=== PATIENT | male | born 1950 | race Caucasian/White ===

== ENCOUNTER 2018-06-19 11:08 | Day surgery (SDC) | payer MEDICARE ==
[2018-06-19 12:11] VITALS: BMI 31.4
[2018-06-19] MEDS ORDERED: Lidocaine 2% MPF (5 ml) Inj ONE (12:18)
[2018-06-19] MEDS ORDERED: Midazolam 2 MG/2 ML VIAL ONE (12:27)
[2018-06-19] MEDS ORDERED: Propofol 10 mg/ml Inj (20 ML) ONE (12:28)
[2018-06-19] MEDS ORDERED: Phenylephrine 10 mg/ml Inj ONE (12:31)
[2018-06-19] MEDS ORDERED: ePHEDrine 50 mg/ml Inj ONE (12:31)
[2018-06-19] MEDS ORDERED: ceFAZolin 1 gm FROZEN Premix 1 GM/50 ML ML IVPB ONE (12:40)
[2018-06-19] MEDS ORDERED: Iohexol 350mg/ml 100 ML ONE (13:22)
--- NOTE | 2018-06-19 13:51 | PCM.SURG1 ---
Surgeon's Initial Post Op Note - Surgeon's Notes Surgeon: Dr. Williamson Studio Potter: Dr. Aguila Type of Anesthesia: IV Sedation Pre-Operative Diagnosis: Aortobi-iliac stenosis Operative Findings: See operative dictation Post-Operative Diagnosis: Same Operation Performed: Peripheral aortofemoral angiogram, Balloon dilitation and stenting with [id number] dilated to 8mm Specimen/Specimens Removed: None Estimated Blood Loss: EBL {In ML}: 20 Blood Products Given: N/A Drains Used: No Drains Post-Op Condition: Good Date of Surgery/Procedure: 06/19/18 Time of Surgery/Procedure: 13:51
--- NOTE | 2018-06-20 00:45 | VAS ---
DATE: 06/19/2018 PREOPERATIVE DIAGNOSES: Claudication in both legs, aortoiliac occlusive disease, bilateral common iliac artery stenosis. PROCEDURES CARRIED OUT: Aortofemoral angiogram with bilateral femoral artery puncture, deployment of bilateral common iliac artery stent. SURGEON: Sreekanth Williamson Jr., MD HEADER MACHINE OPERATOR: None. ANESTHESIOLOGIST: Mr. Pike. ANESTHESIA: Location with sedation. INDICATIONS: The patient is a 67-year-old male with severe claudication in both legs. OPERATIVE FINDINGS: The aorta and renal arteries were widely patent. The terminal portion of the aorta was narrowed. The right common iliac artery had approximately 80% stenosis, the left side had over 90% stenosis in its mid portion. Below this, both internal iliac arteries were open; external iliac arteries, common femoral, superficial femoral, popliteal, posterior tibial and anterior tibial arteries were widely patent. Detailed pictures below the level of the ankle were not taken. Subsequent to the performance of diagnostic arteriogram, which was carried out on the right side using micropuncture technique and ultrasound guidance, we placed two guidewires into the aorta and deployed a long 7-British sheath up to the level of the aorta. Using road-mapping technique, we then deployed a 7 x 79 VBX stent from the aorta down with excellent coverage of the stenotic areas. This was post-dilated with an 8-mm balloon excellent. We then deployed Perclose device in the groin. Blood loss for the procedure was 20 mL. Operation carried out was, 1. Aortofemoral angiogram with bilateral groin punctures. 2. Bilateral common iliac artery stent. The completion pictures showed that the inferior mesenteric artery, lumbar vessels and the internal iliac arteries were widely patent laterally after deploying the stent. Sreekanth Williamson Jr., MD
[2018-06-25 16:46] VITALS: RESP 15; O2SAT 100
== END 2018-06-19 16:55 | disposition home or self-care (01) ==
LOC: C.SPRAD 11:08
PROVIDERS: ATTEND Surgery Vascular Surgery
DX: I70.213 Atherosclerosis of native arteries of extremities with intermittent claudication, bilateral legs (principal); I70.8 Atherosclerosis of other arteries
CPT/HCPCS: 36200; 37221; 75625; 75716; 76937; 82948; 94770; C1725; C1760; C1766; C1769; C1876; J0690; J1644; J2001; J2250; J2370; J3010; Q9967